=== PATIENT | male | born 1985 | race Caucasian/White ===

== ENCOUNTER 2016-05-24 09:54 | Emergency (ER) | payer SELFPAY ==
[~2016-05-24] VITALS: Ht 195.6 cm; Wt 86.4 kg
[2016-05-24 10:02] VITALS: BP 133/97; PULSE 72; RESP 20; O2SAT 97
--- NOTE | 2016-05-24 10:29 | ED.REPORT ---
HPI-General Illness Date of Service May 24, 2016 ED Provider: Kalin Crowe MD This is a 31 year old male with a history of schizophrenia who is homeless presenting to the emergency department complaining of generalized malaise that began yesterday night. Pt also reports chills and dizziness. Repeatedly states, "I just don't feel good." Denies hallucinations, suicidal, homicidal ideation, abdominal pain, chest pain, SOB, nausea, vomiting, hematochezia, diarrhea, or constipation. Nursing Notes Stated Complaint: MENTAL EVAL Chief Complaint: General Complaint Nursing Notes Reviewed: Yes Allergies: Coded Allergies: No Known Allergies (Unverified , 05/24/16) No Active Prescriptions or Reported Meds General Time Seen by MD: 10:28 Chief Complaint Not feeling well Hx Obtained From: Patient Arrived By: Walk-in Sudden in Onset?: Yes Onset Occurred: Yesterday Symptom Duration: Since onset Severity: Current: No pain currently Pertinent Negative: Pt denies other symptoms Recent Healthcare: No recent doctor visit, No recent hospitalization Similar Sx Previous: No Past Medical History Past Medical History Schizophrenia Past Surgical History Denies Social History Other Social History: Homeless Ambulatory Status Independent Review of Systems Full Review of Systems Constitutional: Reports: Chills, Malaise, Denies: Fever Respiratory: Denies: Non-productive cough, Shortness of breath Cardiovascular: Denies: Chest pain GI: Denies: Abdominal pain, Diarrhea, Hematochezia, Nausea, Vomiting Male: Denies Dysuria Musculoskeletal: Denies: Back pain Neurologic: Reports: Dizziness Complete sys rev & neg: except as marked. Physical Exam Vital Signs Vital Signs Date Time Temp Pulse Resp B/P Pulse Ox O2 Delivery O2 Flow Rate FiO2 05/24/16 13:25 82 16 112/63 96 Room Air 05/24/16 10:02 72 20 133/97 97 Room Air Initial VS: Reviewed Head / Eyes: Atraumatic, Normocephalic, PERRL ENT: Mucous membranes moist, Conjunctiva normal, No scleral icterus Neck: Supple, Non-tender, Full range of motion Respiratory: Breath sounds normal, Clear to auscultation, No respiratory distress Cardiovascular: Regular rate & rhythm, Heart sounds normal, Intact distal pulses Abdomen / GI: Soft, Non-tender, No guarding, No rebound, No distention Extremities: Vascular intact, Neuro intact, No swelling, No tenderness Skin: Warm, Dry, No cyanosis Neurologic: Alert, Oriented, Nonfocal Psychiatric: Mood/affect normal, Behavior normal, Normal thought content General/Constitutional: Awake, Alert Interpretation & Diagnostics Lab Results Interpretation Result Diagram: 05/24/16 1040 05/24/16 1040 Test 05/24/16 10:40 White Blood Count 5.5th/mm3 (3.8-10.1) Red Blood Count 5.12mil/mm3 (4.40-5.80) Hemoglobin 15.4g/dL (13.8-17.2) Hematocrit 45.2% (41.0-50.0) Mean Corpuscular Volume 88.3fL (81-100) Mean Corpuscular Hemoglobin 30.1pg (27.0-35.0) Mean Corpuscular Hemoglobin Concent 34.1% (32.0-37.0) Red Cell Distribution Width 13.3% (12.3-15.4) Platelet Count 177bil/L (150-400) Neutrophils (%) (Auto) 83.4% (40-74) Lymphocytes (%) (Auto) 10.2% (14-46) Monocytes (%) (Auto) 6.0% (4-12) Eosinophils (%) (Auto) 0% (0-5) Basophils (%) (Auto) 0.2% (0-3) Sodium Level 138mEq/L (134-144) Potassium Level 4.4mEq/L (3.5-5.2) Chloride Level 103mEq/L (97-108) Carbon Dioxide Level 25mmol/L (18-29) Blood Urea Nitrogen 6mg/dL (6-20) Creatinine 0.63mg/dL (0.76-1.27) Estimat Glomerular Filtration Rate 157mL/min (>59) Glucose Level 111mg/dL (60-99) Calcium Level 9.0mg/dL (8.5-10.1) Total Bilirubin 1.2mg/dL (0.0-1.2) Aspartate Amino Transf (AST/SGOT) 92U/L (0-50) Alanine Aminotransferase (ALT/SGPT) 208U/L (0-44) Alkaline Phosphatase 103U/L (25-150) Total Protein 7.0g/dL (6.4-8.4) Albumin 4.3g/dL (3.4-5.0) Thyroid Stimulating Hormone (TSH) 0.304uIU/mL (0.450-4.500) Hold [place] Top Tube Received (Received) Re-Eval/Medical Decision Med Decision/Clinical Course 31-year-old male history of schizophrenia and homelessness presenting complaining of being cold. He was living on the streets and slept on the streets last night and felt like he was cold. He has not any medications for his schizophrenia. He denies any suicidal ideation or homicidal ideation. His labs are normal other than some mildly low TSH. Recommend he follow up with primary doctor. I offered that he could see social work which she declined. Patient discharged home with follow-up with primary doctor. Time of Eval: 12:18 Re-Evaluation/Progress Note: Plan for d/c, all questions addressed Counseled Regarding: Diagnosis, Lab results, Need for follow-up, When/why to return to ED Discharge & Departure Primary Impression: Homelessness Additional Impressions: Schizophrenia Schizophrenia type: unspecified Qualified Code: F20.9 - Schizophrenia, unspecified Hyperthyroidism Disposition: Home Discharge Condition All VS Reviewed: Yes Condition: Stable Patient Instructions: Hyperthyroidism (ED) Additional Instructions: [facility] up with [facility] for further evaluation. Return to the emergency department for any new or worsening symptoms Referrals: [facility] Scribe Attestation Portions of this note were transcribed by Priyanka Ritter. I, Dr. Crowe personally performed the history, physical exam and medical decision-making; I reviewed and confirmed the accuracy of the information in the transcribed note. Signed by: gerard Perez. 05/24/2016, 15:00. Kalin Crowe MD May 24, 2016 10:29 PRIYANKA RITTER May 24, 2016 10:34
[2016-05-24 10:48] LABS: BASOPHILS % (AUTO) 0.2 % (0-3); EOSINOPHILS % (AUTO) 0 % (0-5); Mean Corpuscular Hemoglobin 30.1 pg (27.0-35.0); Mean Corpuscular Volume 88.3 fL (81-100); NEUTROPHILS % (AUTO) 83.4 % (40-74); Platelet Count 177 bil/L (150-400)
[2016-05-24 13:25] VITALS: BP 112/63; PULSE 82; RESP 16; O2SAT 96
== END 2016-05-24 12:20 | disposition home or self-care (01) ==
LOC: SED 09:54
DX: F20.9 Schizophrenia, unspecified (principal); E05.90 Thyrotoxicosis, unspecified without thyrotoxic crisis or storm; R68.83 Chills (without fever); R42 Dizziness and giddiness; Z59.0 Homelessness

== ENCOUNTER 2016-11-07 17:04 | Emergency (ER) | payer SELFPAY ==
[2016-11-07] MEDS ORDERED: fentaNYL-PF 50 mCg/mL 2 mL Inj ONE (17:31)
[2016-11-07] MEDS ORDERED: Vecuronium 1,000 mCg/mL 10 mL Inj ONE (17:34)
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
--- NOTE | 2016-11-07 18:08 | DRSVH ---
PROCEDURE: X-RAY CHEST ONE VIEW, PORTABLE ([id number]) INDICATIONS: POST CHEST TUBE PLACEMENT TECHNIQUE: One view of the chest was acquired. COMPARISON: [facility], CR, XR CHEST 1VW (PORTABLE), 11/07/2016, 17:00. FINDINGS: Surgical changes and devices: Right-sided chest tube. ET tube projects approximately 7.7 cm superio r to lin and could be advanced approximately 3-4 cm. Lungs and pleura: No pleural effusions or pneumothorax. Lungs are clear. Mediastinum: Mediastinal contours appear normal. Heart size is normal. Bones and chest wall: No suspicious bony lesions. Overlying soft tissues appear unremarkable. IMPRESSION: 1. Status post placement of right-sided chest tube. No pneumothorax identified. 2. ET tube approximately 7.7 cm superior to the lin. 3. No acute disease process identified in the visualized lungs. Dictated by: Myriam Siegel MD, PhD on 11/07/2016 at 18:04 Approved by: Myriam Siegel MD, PhD on 11/07/2016 at 18:07
[2016-11-07] MEDS ORDERED: Succinylcholine Chloride 20 mg/mL 5 mL Inj IVPUSH ONE (18:10)
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
[2016-11-07] MEDS ORDERED: fentaNYL-PF 50 mCg/mL 2 mL Inj IVPUSH ONE (18:15)
[2016-11-07] MEDS ORDERED: Vecuronium 1,000 mCg/mL 10 mL Inj IV ONE (18:15)
[2016-11-07] MEDS ORDERED: Tranexamic Acid 100 mg/mL 10 mL Inj IV ONE (18:15)
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
[2016-11-07 18:59] VITALS: BP 107/70; PULSE 100; O2SAT 100
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
== END 2016-11-07 18:20 | disposition short-term general hospital (02) ==
LOC: EDBD 17:04 → SED 17:04 → EDUNIT# 17:04 → SED 18:20
DX: S01.81XA Laceration without foreign body of other part of head, initial encounter (principal); S01.21XA Laceration without foreign body of nose, initial encounter; S01.511A Laceration without foreign body of lip, initial encounter; S00.83XA Contusion of other part of head, initial encounter; S80.211A Abrasion, right knee, initial encounter; S80.212A Abrasion, left knee, initial encounter; R41.82 Altered mental status, unspecified; V13.4XXA Pedal cycle driver injured in collision with car, pick-up truck or van in traffic accident, initial encounter; Y93.89 Activity, other specified; Y92.410 Unspecified street and highway as the place of occurrence of the external cause; Y99.8 Other external cause status
CPT/HCPCS: 31500; 32551; 36415; 71010; 72170; 87340; 87522; 94799; 96374; 96375; 99152; 99291; G0390; G0432; G0433; G0472; J0330; J2250; J3010

== ENCOUNTER 2016-11-12 20:01 | Emergency (ER) | payer SELFPAY ==
[~2016-11-12] VITALS: Ht 182.9 cm; Wt 81.8 kg
[2016-11-12 20:07] VITALS: BP 116/70; PULSE 97; RESP 16; O2SAT 95
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
== END 2016-11-12 22:01 | disposition home or self-care (01) ==
LOC: SED 20:01
DX: S01.512D Laceration without foreign body of oral cavity, subsequent encounter (principal); V13.4XXD Pedal cycle driver injured in collision with car, pick-up truck or van in traffic accident, subsequent encounter; Y93.9 Activity, unspecified; Y92.410 Unspecified street and highway as the place of occurrence of the external cause; Y99.9 Unspecified external cause status; F20.9 Schizophrenia, unspecified